=== PATIENT | female | born 1970 | race Caucasian/White ===

== ENCOUNTER 2022-06-07 15:44 | Emergency (ER) | payer BC, SELFPAY ==
[2022-06-07 16:00] VITALS: BP 127/61; PULSE 71; RESP 17; TEMP 36.4; O2SAT 96
--- NOTE | 2022-06-07 16:47 | ED.GENADULT ---
HPI - General Adult General Chief complaint: Upper Respiratory Infection Stated complaint: dry scratchy throat,sinus drainage History of Present Illness HPI narrative: 51 y/o female. Presents to [facility] today with acute complaints of nasal congestion, maxillary facial pressure, and sinus diacharge for the past 72 hours. She reports a history of frequent sinus congestion and nasal passage surgery. No fevers. No myalgia. No chest congestion, dyspnea. No known ill contacts. 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 No additional acute c/o upon PE. Related Data Home Medications Medication Instructions Recorded Confirmed progesterone micronized 200 mg 200 mg HS 06/07/22 06/07/22 capsule trazodone 50 mg tablet 150 mg HS 06/07/22 06/07/22 Allergies Allergy/AdvReac Type Severity Reaction Status Date / Time oxycodone Allergy Intermediate NAUSEA Verified 06/07/22 16:02 propoxyphene Allergy Intermediate NAUSEA Verified 06/07/22 16:02 Review of Systems Review of Systems: CONSTITUTIONAL: Denies fever, chills, sweats. EYES: Denies visual changes, redness, discharge. ENT: Positive rhinorrhea, congestion. Scratchy sore throat. No otalgia. CARDIOVASCULAR: Denies chest pain, palpitations, edema. RESPIRATORY: Denies dyspnea, wheezing, cough GASTROINTESTINAL: Denies abdominal pain, nausea, vomiting, diarrhea. GENITOURINARY: Denies dysuria, hematuria, abnormal discharge SKIN: Denies rash or itching. MUSCULOSKELETAL: Denies acute back pain, joint pain, or myalgia. NEUROLOGIC: Denies numbness, or focal weakness. PSYCHIATRIC: Denies anxiety or depression. Exam Narrative: GENERAL: This is a well-nourished, well-developed adult, in no apparent distress. HEAD: normocephalic, atraumatic. EYES: PERRL. Sclera clear/white. EARS: External ears normal, auditory canals clear and without drainage, TMs normal. NOSE: External nose normal. Positive Rhinorrhea, purulent nasal discharge, no obstruction. Maxillary facial pressure. congestion. THROAT: Mucous membranes moist, posterior pharynx erythematous. No exudates. NECK: Neck supple, non-tender without lymphadenopathy, masses or thyromegaly. CARDIOVASCULAR: Regular rate and rhythm without murmurs, gallops, or rubs. RESPIRATORY: Clear to auscultation. Breath sounds equal bilaterally. No wheezes, rales, or rhonchi. GASTROINTESTINAL: Abdomen soft, non-tender, nondistended. Bowel sounds are active. No guarding. SKIN: warm, intact with no suspicious lesions or rash, good texture and turgor. NEURO: Alert, active, and age appropriate. No focal neurologic deficits. Course Course Level of Care: Express Care Visit Vital Signs Vital signs: Vital Signs Temperature 36.4 C 06/07/22 16:00 Pulse Rate 71 06/07/22 16:00 Respiratory Rate 17 06/07/22 16:00 Blood Pressure 127/61 06/07/22 16:00 Pulse Oximetry 96 06/07/22 16:00 Oxygen Delivery Room Air 06/07/22 16:00 Temperature 36.4 C 06/07/22 16:00 Pulse Rate 71 06/07/22 16:00 Respiratory Rate 17 06/07/22 16:00 Blood Pressure 127/61 06/07/22 16:00 Pulse Oximetry 96 06/07/22 16:00 Oxygen Delivery Room Air 06/07/22 16:00 Medical Decision Making [facility] Narrative Medical decision making narrative: -Afebrile, non-tachycardic, appears non-toxic. -PE Consistent with bacterial sinusitis. 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 -ATB as directed. Resume additional antihistamine and Flonase regimen OTC. -PCP F/U 1WK. -ER W/Emergent status changes. PT agrees. Differential Diagnosis Differential Diagnosis: Differential Diagnosis: Consideration of the following conditions may be warranted for the presenting problem, they are not final diagnoses: upper respiratory infection, otitis media, sinusitis, RSV viral infection, bronchitis, pharyngitis, Streptococcal sore throat, COVID-19, and other. Vital Signs Vital Signs: Vital Signs Temperature 3
== END 2022-06-07 16:17 | disposition home or self-care (01) ==
PROVIDERS: Emergency Provider Nurse Practitioner Adult Health; PCP Family Medicine Sports Medicine
DX: J32.9 Chronic sinusitis, unspecified (principal)
CPT/HCPCS: 99213; G0463

== ENCOUNTER 2025-08-31 06:41 | Emergency (ER) | payer BC, SELFPAY ==
--- OUTSIDE RECORDS SUMMARY | 2023-06-19 08:00 | XMS_ITS | Continuity of Care Document ---
Author Organization [facility] Address [address] [place] [address] Phone Care Team Providers Care Unix Architect Name Role Phone Hansel Hargrove MD Unavailable Unavailable Procedures Procedure Date MRI, PELVIS W & W/O CONTRAST Injection, gadoterate meglumine, 0.1 ml Advance Directives Directive Yes / No Effective Date File Name No Information Encounters Encounter Description Practice Location Reason(s) For Visit Diagnoses Date Provider Providers Copied on Encounter [facility], [address], [place], [place], [id number], [place] tel:[phone] [facility] No Information Beena Hamm. [address] , [place], [place], [id number], [place]. tel:[phone] Referring Provider: Buck Morrison DO, [address], [place], [address]. tel:[phone] Family History Family Member Type Diagnosis Age At Onset No Information Payers Payer name Insurance type Covered democrat ID Authoriza tion(s) [facility] ACCESS BL [id number] Social History Type Description Quantity Date Captured Comments Sex Female Smoking Status No Information Chief Complaint And Reason For Visit No Information Reason For Referral Reason For Referral No Information History Of Present Illness Encounter Date Complaint History Of Prese nt Illness No Information Functional Status Date Functional Assessmen t No Information Instructions Date Instruction Additional Infor mation No Information Assessments Type Assessment Date No Information Patient Care Teams Name Effective Dates (start - stop) Status Members No Information
--- NOTE | ~2025-08-31 | CT_ITS ---
EXAMINATION: CT brain wo con DATE: 08/31/2025 07:50 INDICATION: Migraine. TECHNIQUE: Computed tomography (CT) of the head was performed without intravenous contrast. The mA was adjusted according to patient size. Iterative reconstruction technique was employed. The dose-length product was 605.33 mGy-cm. COMPARISON: None FINDINGS: There is no intracranial hemorrhage, acute infarction, or abnormal intracranial mass lesion. The ventricles are normal in size. There is mild mucosal thickening in the paranasal sinuses. The orbits are normal. The mastoid air cells are normal. IMPRESSION: 1. Normal brain. Reviewed, dictated and finalized at location E. NTIFIC PROGRAMMER ANALYST IMPRESSION: 1. Normal brain.
[2025-08-31 06:43] VITALS: BP 114/66; PULSE 71; RESP 20; TEMP 36.4; O2SAT 99
[2025-08-31 07:02] VITALS: BP 113/73; PULSE 79; RESP 16; O2SAT 96
--- NOTE | 2025-08-31 07:35 | ED.GENADULT ---
HPI - General Adult General Chief complaint: Headache Stated complaint: Headache Time Seen by Provider: 08/31/25 06:57 History of Present Illness HPI narrative: 54-year-old female presenting to the emergency department for evaluation for headache. Patient does have an extensive history of migraines. Patient states this is 1 of the emergency migraines that she has had a very long time. Patient states the migraine started with or I will like her typical migraine and is located behind her right eye like her typical migraines but the migraine did not respond to her home medications. ubrogepant and Nurtec did not help to ablate the migraine. Patient has been taking her other medications as directed. Upon arrival emergency department patient is wearing her sunglasses and is uncomfortable appearing Related Data Home Medications ?Medication ?Instructions ?Recorded ?Confirmed ?Last Taken ?Type progesterone micronized 200 mg 200 mg HS 06/07/22 06/07/22 Unknown History capsule trazodone 50 mg tablet 150 mg HS 06/07/22 06/07/22 Unknown History Allergies Allergy/AdvReac Type Severity Reaction Status Date / Time oxycodone Allergy Intermediate NAUSEA Verified 08/31/25 08:00 propoxyphene Allergy Intermediate NAUSEA Verified 08/31/25 08:00 sertraline AdvReac Mild Nightmare Verified 08/31/25 08:00 Review of Systems Review of Systems: All systems reviewed & are unremarkable except as noted in HPI and below Exam Narrative: APPEARANCE: uncomfortable appearing HEAD: normocephalic, atraumatic. EYES: PERRLA/EOMI, conjunctivae clear. NOSE: Normal no drainage EARS:TMS clear with good light reflex. THROAT: Pharynx clear, no exudate. NECK: Supple. No adenopathy, no masses. RESPIRATORY: Airway patent, respirations nonlabored. Clear to auscultation bilaterally, no rales, rhonchi, wheezing. CARDIOVASCULAR: Regular rate and rhythm without murmurs rubs or gallops. ABDOMINAL: Soft, nontender, nondistended, normal bowel sounds MUSCULOSKELETAL: Moves all extremities. Strength/ROM intact, No edema, No calf tenderness. NEURO: Alert. Cranial nerves II through XII intact. Good gait. Good coordination SKIN: Warm, dry. Normal Color PSYCHIATRIC: Flat affect Course Vital Signs Vital signs: Vital Signs Temperature 97.6 F 08/31/25 06:43 Pulse Rate 71 08/31/25 06:43 Respiratory Rate 20 08/31/25 06:43 Blood Pressure 114/66 08/31/25 06:43 Pulse Oximetry 99 08/31/25 06:43 Oxygen Delivery Room Air 08/31/25 06:43 Temperature 98 F 08/31/25 10:34 Pulse Rate 72 08/31/25 10:34 Respiratory Rate 18 08/31/25 10:34 Blood Pressure 122/76 08/31/25 10:34 Pulse Oximetry 96 08/31/25 10:34 Oxygen Delivery Room Air 08/31/25 07:02 Medical Decision Making MDM Narrative Medical decision making narrative: 54-year-old female present to the emergency department for evaluation for headache. Patient was treated with dexamethasone, Toradol at, 1 g of Mag, 50 mg of IV Benadryl, 10 mg of Compazine and a L lactated Ringer's. Head CT showed no acute intracranial abnormality did show some mild mucosal thickening in the paranasal sinuses. On re-evaluation patient states she does feel improved and patient states she is ready to be discharged home. All questions concerns were addressed. Differential Diagnosis Differential Diagnosis: Migraine, headache, dehydration cough, subarachnoid hemorrhage Vital Signs Vital Signs: Vital Signs Temperature 97.6 F 08/31/25 06:43 Pulse Rate 71 08/31/25 06:43 Respiratory Rate 20 08/31/25 06:43 Blood Pressure 114/66 08/31/25 06:43 Pulse Oximetry 99 08/31/25 06:43 Oxygen Delivery Room Air 08/31/25 06:43 Temperature 98 F 08/31/25 10:34 Pulse Rate 72 08/31/25 10:34 Respiratory Rate 18 08/31/25 10:34 Blood Pressure 122/76 08/31/25 10:34 Pulse Oximetry 96 08/31/25 10:34 Oxygen Delivery Room Air 08/31/25 07:02 Imaging Data Radiologist's impression: Impressions Head CT 08/31/25 07:54 IMPRESSION: 1. Normal brain. Discharge Plan Discharge Clinical Impression: Migraine, Headache Patient Disposition: Home Condition: Stable Instructions: Antibiotic Form, Migraine Headache (ED) Additional Instructions: Head CT was negative for any acute intracranial abnormality. Head CT did show some mild mucosal thickening of the paranasal sinuses but no evidence of a significant sinus infection. Continue to have close follow-up with your physicians. Home medications as directed. If you have any worsening symptoms please call or return to the emergency department. Patient Language: Kiswahili Prescriptions: No Action trazodone 50 mg tablet 150 mg HS progesterone micronized 200 mg capsule 200 mg HS amoxicillin 500 mg capsule 500 mg PO Q8H 10 Days Qty: 30 0RF methylprednisolone [Medrol (Juan F)] 4 mg tablets,dose pack See Rx Instructions .ROUTE .COMPLEX Qty: 21 0RF Rx Instructions: orally per package directions Follow-up/Referrals: Kingsley,Rossi Carter, [Non-Staff, Unknown]
--- OUTSIDE RECORDS SUMMARY | 2025-08-31 07:47 | XMS_ITS | Clinical Summary ---
Author Organization [facility] Address [address] [place] [address] Care Team Providers Care Rivet Tester Name Role Phone Rossi Wynn DO Primary Care Provider [phone] Source Comments [facility],non-[facility] Affiliates and Associated Physician Practices is amultiple site organization consisting of ambulatory clinics and hospital sitesin [place], [place]. This disclosure is being madepursuant to the Care Everywhere program and may not contain all information available regarding this patient. Last updated 18.[facility] Social History Tobacco Use Types Packs/Day Years Used Date Smoking Tobacco: Never Assessed Comments Unknown Sex and Gender Information Value Date Recorded Sex Assigned at Not on file Legal Sex Female 8:17 AM CDT Gender Identity Not on file Sexual Orientation Not on file Last Filed Vital Signs Vital Sign Reading Time Taken Comments Blood Pressure - - Pulse - - Temperature - - Respiratory Rate - - Oxygen Saturation - - Inhaled Oxygen Concentration - - Weight 97.5 kg (215 lb) 05/06/2019 1:19 PM CDT Height 162.6 cm (5' 4) 05/06/2019 1:19 PM CDT Body Mass Index 36.9 05/06/2019 1:19 PM CDT Plan of Treatment Health Maintenance Due Date Last Done Comments COLOGUARD (AGES 45-75) - COLON CA SCREENING 1969 COLON MONITORING 1969 COLONOSCOPY - COLON CA SCREENING 1969 CT COLONOGRAPHY - COLON CA SCREENING 1969 Colorectal Cancer Screening 1969 FIT - COLON CA SCREENING 1969 FLEX SIG - COLON CA SCREENING 1969 LIPID TESTING 1969 MAMMOGRAM 1969 HIV SCREENING 1984 HEPATITIS C SCREENING 08/31/1987 DTAP/TDAP/TD VACCINES (1 - Tdap) 1988 HEPATITIS B VACCINE (1 of 3 - 19+ 3-dose series) 1988 PAP SMEAR 1990 Cervical Cancer Screening 1999 PAP with HPV 1999 PNEUMOCOCCAL VACCINE 50+ (1 of 1 - PCV) 2019 ZOSTER VACCINE (1 of 2) 2019 DEPRESSION SCREENING 10/09/2024 COVID-19 VACCINE (1 - season) 2025 INFLUENZA VACCINE (#1) 2025 8, 07/24/2018, 08/15/2017, Additional history exists HIB VACCINE Aged Out No longer eligi ble based on patient's age to complete this topic HPV VACCINE Aged Out No longer eligi ble based on patient's age to complete this topic MENINGOCOCCAL (Group B) VACCINE SHARED DECISION-MAKING Aged Out No longer eligible based on patient's age to complete this topic MENINGOCOCCAL GROUPS A/C/Y/W VACCINE Aged Out No longer eligible based on patient's age to complete this topic Insurance [facility] Care Teams Rivet Tester Relationship Specialty Start Date End Date Rossi Wynn DO PCP - General Family Medicine 04/26/19
--- OUTSIDE RECORDS SUMMARY | 2025-08-31 07:47 | XMS_ITS | Clinical Summary ---
Author Organization [address] Address [address] [place] [id number] Care Team Providers Care Nurse Charge Rn Name Role Phone Ivette Handy MD Primary Care Provider [phone] Allergies Active Allergy Reactions Criticality Noted Date Comments Propoxyphene-Acetamino phen Nausea only Reaction: Nausea, Sertraline Other (See comments) Medium 02/17/2012 Nightmares Medications albuterol HFA (PROVENTIL HFA,VENTOLIN HFA,PROAIR HFA) 90 mcg/actuation inhaler TAKE 2 PUFFS BY MOUTH EVERY 4 HOURS NEEDED 3 Active clobetasoL (TEMOVATE) 0.05 % cream 4 Active fluocinolone-hydroq .-tretinoin (Tri-Deb) 0.01-4-0.05 % cream APPLY TO AFFECTED AREA 1-2 TIMES PER DAY 2 Active fluticasone propionate (FLONASE) 50 mcg/actuation nasal spray USE 1 SPRAYS IN EACH NOSTRIL ONCE DAILY NEEDED 1 Active phenazopyridine (PYRIDIUM) 100 mg tablet Take 1 tablet (100 mg total) by mouth 3 (three) times a day as needed Active progesterone (PROMETRIUM) 200 mg capsule 1 Active rizatriptan TELEVISION RECEIVER ANALYZER (MAXALT-TELEVISION RECEIVER ANALYZER) 10 mg disintegrating tablet Take 1 tablet (10 mg total) by mouth as needed 4 Active traZODone (DESYREL) 100 mg tablet Take 1 tablet (100 mg total) by mouth nightly Active benzonatate (TESSALON) 200 mg capsuleIndications: Acute non-recurrent pansinusitis Take 1 capsule (200 mg total) by mouth 3 (three) times a day as needed for cough 30 capsule 4 Active Active Problems Problem Noted Date Diagnosed Date Abdominal muscle defects 03/08/2022 Malignant neoplasm of cervix 03/08/2022 Snores 03/08/2022 Status post hysterectomy 03/08/2022 ASVD (arteriosclerotic vascular disease) 021 Diverticulosis of colon 12/14/2020 Moderate persistent asthma without complication 12/14/2020 Chronic low back pain with right-sided sciatica 08/06/2019 Chronic right hip pain 08/06/2019 Acute upper respiratory infection 01/12/2018 Overview (12/05/2023): Note: maxillary Date Onset: 10/20/2017 Date Onset: 05/30/2018 Insomnia 01/05/2018 Overview (12/05/2023): Date Onset: 01/05/2018 Wound of skin 01/05/2018 Overview (12/05/2023): Date Onset: 01/05/2018 Localized osteoarthrosis, ankle and foot 017 Overview (12/05/2023): Date Onset: 02/13/2017 Date Onset: 03/04/2014 Intermittent asthma 08/20/2015 Abnormality of gait 03/04/2014 Overview (12/05/2023): Date Onset: 03/04/2014 Anxiety disorder 02/17/2012 Surgical History Surgery Date Site/Laterality Comments [place] SALPINGO-OOPHORECTOMY COMPL/PRTL UNI/BI SPX Salpingo-oophorectomy Left Side - (2006) (Added by DORINA Conv) SINUS SURGERY Sinus Surgery - (2000) (Added by TW Conv) LASIK Corneal LASIK Bilateral - (2012) (Added by TW Conv) [place] SUPRACERVICAL ABDL HYSTER W/WO RMVL TUBE OVARY Supracervical Hysterectomy - (2005) (Added by TW Conv) [place] EXCISION CERVICAL STUMP ABDOMINAL APPROACH Excision Of Cervical Stump Abdominal Approach - (08/31/15) (Added by TW Conv) [place] OOPHORECTOMY PARTIAL/TOTA L UNI/BI Oophorectomy - Unilateral (Removal Of One Ovary) - Right salpingo-oophorectomy (08/31/15) (Added by TW Conv) Medical History Medical History Date Comments Personal history of other sp ecified conditions History of breast lump - (Ad ded by TW Conv) Pelvic and perineal pain Pelvic pain - (Added by TW Conv) Atypical squamous cells of u ndetermined significance on cytologic smear of cervix (ASC-US) 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 cervical - (Added by TW Conv) Mild cervical dysplasia Dysplasi a of cervix, low grade (PILO 1) - (Added by TW Conv) Family History Medical History Relation Name Comments Kidney cancer Maternal Grandfather Family history of malignant neoplasm of kidney - (Added by TW Conv) Lung cancer Maternal Grandmother Family history of lung cancer - smoker (Added by TW Conv) Relation Name Status Comments Maternal Grandfather Maternal Grandmother Social History Tobacco Use Types Packs/Day Years Used Date Smoking Tobacco: Never Assessed Comments Unknown Sex and Gender Information Value Date Recorded Sex Assigned at Not on file Legal Sex Female 5:34 AM CHOCOLATE COATER Gender Identity Not on file Sexual Orientation Not on file Last Filed Vital Signs Vital Sign Reading Time Taken Comments Blood Pressure 102/64 12/05/2023 8:27 AM CHOCOLATE COATER Pulse 84 12/05/2023 8:27 AM CHOCOLATE COATER Temperature 36.6 C (97.9 F) 12/05/2023 8:27 AM CHOCOLATE COATER Respiratory Rate 18 12/05/2023 8:27 AM CHOCOLATE COATER Oxygen Saturation 97% 12/05/2023 8:27 AM CHOCOLATE COATER Inhaled Oxygen Concentration - - Weight 95.3 kg (210 lb) 12/05/2023 8:27 AM CHOCOLATE COATER Height 165.1 cm (5' 5) 12/05/2023 8:27 AM CHOCOLATE COATER Body Mass Index 34.95 12/05/2023 8:27 AM CHOCOLATE COATER Plan of Treatment Health Maintenance Due Date Last Done Comments Cervical Cancer Screening 1969 Colon Cancer Screening-Colonoscopy 1969 Depression Screening 1969 Hepatitis C Screening 1969 Hepatitis B Screening 1987 Regular Well Visit/Exam 18-64 1987 Breast Cancer Screening-Mammogram 07/28/2024 07/28/2023, 07/28/2023, 05/09/2022 Covid-19 Vaccine (3 - 2024-2 6 season) 2025 06/28/2021, 06/07/2021 Influenza Vaccine (#1) 2025 , 07/31/2023, 07/20/2022, Additional history exists DTaP/Tdap/Td Vaccine (5 - Td or Tdap) 10/28/2033 10/28/2023, 04/25/2013, 04/19/2013, Additional history exists Pneumococcal vaccine <65 Completed 07/20/2022 Zoster Vaccine Completed 12/20/2022, 10/21/2022 Insurance [facility] [employer] [facility] [employer] Care Teams Nurse Charge Rn Relationship Specialty Start Date End Date Ivette Handy MD PCP - General Family Medicine 07/17/24
[2025-08-31] MEDS: LACTATED RINGERS 1,000 ML 999 ML IV CONT (08:02)
[2025-08-31] MEDS: dexAMETHasone SOD PHOS INJ 10 MG/ML 1 ML VIAL IV PUSH (08:03)
[2025-08-31] MEDS: PROCHLORPERAZINE EDISYLATE 10 MG/2 ML VIAL IV PUSH (08:03)
[2025-08-31] MEDS: MAGNESIUM SULF 1 GM/D5W 100 ML 1 GM/100 ML BAG IVPB (08:30)
[2025-08-31] MEDS: KETOROLAC 15 MG/ML VIAL (*BKC) IV PUSH (09:29)
--- NOTE | 2025-08-31 09:32 | PC.NURSE ---
Patient resting comfortably in bed with lights off at this time
[2025-08-31 10:34] VITALS: BP 122/76; PULSE 72; RESP 18; TEMP 36.6; O2SAT 96
== END 2025-08-31 10:35 | disposition home or self-care (01) ==
PROVIDERS: Emergency Provider Emergency Medicine; PCP Student in an Organized Health Care Education/Training Program
DX: G43.909 Migraine, unspecified, not intractable, without status migrainosus (principal)
CPT/HCPCS: 70450; 96361; 96365; 96375; 99284; J0780; J1100; J1200; J1885; J3475; J7120